=== PATIENT | male | born 2005 | race Caucasian/White ===

== ENCOUNTER 2024-01-21 08:03 | Emergency (ER) | payer BC | END 2024-01-21 08:23 | disposition home or self-care (01) | LOC: MADERS 08:03 | DX: S01.01XD Laceration without foreign body of scalp, subsequent encounter (principal); W22.8XXD Striking against or struck by other objects, subsequent encounter ==

== ENCOUNTER 2025-08-14 07:45 | Emergency (ER) | payer BC ==
[2025-08-14] MEDS ORDERED: Mag-Al 1200 mg/1200 mg/30 ML UDCUP ONE (08:35)
[2025-08-14] MEDS ORDERED: Lidocaine Viscous Sol 2% 15 ml UD Cup ONE (08:35)
== END 2025-08-14 08:54 | disposition home or self-care (01) ==
LOC: MADERS 07:45
DX: K12.0 Recurrent oral aphthae (principal)
CPT/HCPCS: 99282